=== PATIENT | male | born 1995 | race Caucasian/White ===

== ENCOUNTER 2025-01-03 00:06 | Inpatient (IN) | payer SELFPAY ==
[~2025-01-03] VITALS: Ht 177.8 cm; Wt 81.6 kg
[2025-01-03 01:05] LABS: BASOPHILS % 0.6 % (0.0-2.0); EOSINOPHILS % 2.0 % (0.0-5.0); HEMATOCRIT. 41.5 % (42.0-52.0); HEMOGLOBIN. 13.9 g/dL (14.0-18.0); LYMPHOCYTES % 26.4 % (20.0-50.0); MEAN PLATELET VOLUME 8.8 fl (7.4-10.4); MONOCYTES % 5.9 % (2.0-8.0); NEUTROPHILS % 65.1 % (40.0-76.0); PLATELET 207 x1000/uL (130-400); RED BLOOD CELL COUNT 4.66 mill/uL (4.7-6.1); RED CELL DISTRIBUTION WIDTH 13.4 % (11.6-14.6)
[2025-01-03 01:17] LABS: CREATININE 1.0 mg/dL (0.6-1.3); UREA NITROGEN BLOOD 10 mg/dL (9-23)
[2025-01-03 01:18] LABS: ETHANOL BLOOD 249 mg/dL (<10); TROPONIN I HIGH SENSITIVITY < 4 ng/L (3.0-53)
[2025-01-03] MEDS: SODIUM CHLORIDE 0.9% 1,000 ML IV ONE (01:23)
[2025-01-03 02:09] LABS: *AMPHETAMINES SCREEN URINE NEGATIVE (NEGATIVE); *BENZODIAZEPINES SCREEN URINE NEGATIVE (NEGATIVE)
[2025-01-03 02:10] LABS: *BARBITURATES SCREEN URINE NEGATIVE (NEGATIVE); *COCAINE SCREEN URINE NEGATIVE (NEGATIVE); ECSTASY MDMA SCREEN URINE NEGATIVE (NEGATIVE); METHADONE URINE SCREEN NEGATIVE (NEGATIVE); OPIATES URINE SCREEN NEGATIVE (NEGATIVE); PHENCYCLIDINE URINE SCREEN NEGATIVE (NEGATIVE)
[2025-01-03 02:58] LABS: CANNABINOID URINE SCREEN NEGATIVE (NEGATIVE)
[2025-01-03 03:07] LABS: TROPONIN I HIGH SENSITIVITY < 4 ng/L (3.0-53)
[2025-01-03] MEDS ORDERED: ONDANSETRON HCL 4MG/2ML INJ IV PRN (03:45)
[2025-01-03] MEDS ORDERED: ACETAMINOPHEN 325MG TABLET PO PRN ×2 (03:45)
[2025-01-03] MEDS ORDERED: IPRATROPIUM/ALBUTEROL 0.5-3(2.5)MG/3ML NEB HHN PRN (03:45)
[2025-01-03] MEDS ORDERED: DOCUSATE SODIUM 100MG CAPSULE PO PRN (03:45)
[2025-01-03 04:27] LABS: TROPONIN I HIGH SENSITIVITY 4 ng/L (3.0-53)
[2025-01-03 04:29] LABS: PHOSPHORUS 2.5 mg/dL (2.5-4.9)
[2025-01-03 05:45] VITALS: BP 119/75; PULSE 86; RESP 16; TEMP 36.5; O2SAT 100
[2025-01-03] MEDS ORDERED: ALBU18HF2 IH (06:03)
[2025-01-03 06:08] VITALS: BP 119/75; PULSE 86; RESP 16; TEMP 36.5292
[2025-01-03 08:00] VITALS: BP 122/82; PULSE 79; RESP 20; TEMP 36.1; O2SAT 98
[2025-01-03] MEDS: PANTOPRAZOLE SODIUM 40 MG/VIAL IV SCH (09:47)
[2025-01-03 12:00] VITALS: BP 128/76; PULSE 85; RESP 20; TEMP 36.4; O2SAT 97
[2025-01-03] MEDS ORDERED: GABA-1180 PO (12:33)
[2025-01-03] MEDS: GABAPENTIN 300MG CAPSULE PO PRN (12:42)
[2025-01-03 16:00] VITALS: BP 124/76; PULSE 68; RESP 20; TEMP 36.5; O2SAT 99
[2025-01-03 20:00] VITALS: BP 113/64; PULSE 71; RESP 16; TEMP 36.4; O2SAT 96
[2025-01-04] VITALS: BP 121/71; PULSE 74; RESP 19; TEMP 36.4; O2SAT 98
[2025-01-04 04:00] VITALS: BP 124/76; PULSE 80; RESP 19; TEMP 36.4; O2SAT 97
[2025-01-04 06:04] LABS: CREATININE 0.8 mg/dL (0.6-1.3); T4 FREE 1.39 ng/dL (0.89-1.76)
[2025-01-04 06:05] LABS: TRIGLYCERIDE 83 mg/dL (0-150); UREA NITROGEN BLOOD 19 mg/dL (9-23)
[2025-01-04 06:06] LABS: LDL CHOLESTEROL 73 mg/dL (5-100)
[2025-01-04 06:47] LABS: BASOPHILS % 0.6 % (0.0-2.0); EOSINOPHILS % 3.4 % (0.0-5.0); HEMATOCRIT. 42.2 % (42.0-52.0); HEMOGLOBIN. 14.0 g/dL (14.0-18.0); LYMPHOCYTES % 29.7 % (20.0-50.0); MEAN PLATELET VOLUME 9.3 fl (7.4-10.4); MONOCYTES % 7.3 % (2.0-8.0); NEUTROPHILS % 59.0 % (40.0-76.0); PLATELET 188 x1000/uL (130-400); RED BLOOD CELL COUNT 4.77 mill/uL (4.7-6.1); RED CELL DISTRIBUTION WIDTH 12.9 % (11.6-14.6)
[2025-01-04 08:00] VITALS: BP 111/52; PULSE 65; RESP 20; TEMP 36.4; O2SAT 100
[2025-01-04 10:43] VITALS: BP 122/69; PULSE 68; TEMP 97.9; O2SAT 99
== END 2025-01-04 11:40 | disposition home or self-care (01) | DRG 204 ==
LOC: ER 00:06 → 8WST 02:38 → EDBEDREQTM 02:59 → EDBEDREQ 02:59 → ENRESERV 03:22
PROVIDERS: ADMIT Hospitalist; ATTEND Hospitalist
DX: I95.1 Orthostatic hypotension (principal); E83.41 Hypermagnesemia; F10.129 Alcohol abuse with intoxication, unspecified; D64.9 Anemia, unspecified; I44.0 Atrioventricular block, first degree; J45.909 Unspecified asthma, uncomplicated; F41.9 Anxiety disorder, unspecified; Y90.8 Blood alcohol level of 240 mg/100 ml or more; Z82.49 Family history of ischemic heart disease and other diseases of the circulatory system
CPT/HCPCS: 36415; 71045; 80048; 80061; 80305; 80320; 82728; 83540; 83550; 83735; 84100; 84439; 84443; 84484; 85025; 85379; 93005; 99291; J2470; J7030; G0480